=== PATIENT | female | born 1950 | race Caucasian/White ===

== ENCOUNTER 2024-09-13 09:42 | Outpatient (CLI) | payer MEDICARE, OTHER | END 2024-09-13 09:43 | disposition home or self-care (01) | LOC: SCSRAD 09:42 | PROVIDERS: ATTEND Student in an Organized Health Care Education/Training Program | DX: M79.672 Pain in left foot (principal) ==

== ENCOUNTER 2025-08-06 10:38 | Outpatient (CLI) | payer MEDICARE, OTHER | END 2025-08-06 10:39 | disposition home or self-care (01) | LOC: SCSRAD 10:38 | PROVIDERS: ATTEND Family Medicine | DX: M25.562 Pain in left knee (principal) ==